=== PATIENT | male | born 1990 | race Caucasian/White ===

== ENCOUNTER 2017-05-08 17:05 | Emergency (ER) | payer SELFPAY ==
[~2017-05-08] VITALS: Ht 175.3 cm; Wt 70.0 kg
[~2017-05-08 17:05] MED LIST: DILA2TAB4 PO; PERC5TAB12 PO; REGL10TA5 PO
--- NOTE | 2017-05-08 17:31 | PD ---
HPI Chief Complaint: Psychiatric Symptoms Time Seen by Provider: 17:23 Travel History International Travel<30 days: No Contact w/Intl Traveler<30days: No Traveled to known affect area: No History of Present Illness HPI 26-year-old male brought in by EMS under a Peña act. According to the Peña act the patient has been depressed from the loss of his job, girlfriend, and home. The patient took Xanax. EMS reports that the patient was making suicidal statements on social media. Patient admits that he recently broke up with his girlfriend, lost his job, and is no longer able to stay in his truck where he has been sleeping. He admits to taking one Xanax yesterday, and 2 today that were provided to him by his parents. He also admits to drinking beer today. He is denying suicidal ideation. Denies any physical complaints. Denies illicit drug use. PFSH Past Medical History Hx Anticoagulant Therapy: No Cardiovascular Problems: No Chemotherapy: No Cerebrovascular Accident: No Diabetes: No Diminished Hearing: No (SOUND SENSITIVE) Respiratory: No Immunizations Current: No Past Surgical History Other Surgery: Yes (SPINAL DECOMPRESSION SURGERY) Social History Alcohol Use: Yes (socially) Tobacco Use: No Substance Use: Yes ([employer]) Allergies-Medications (Allergen,Severity, Reaction): Coded Allergies: No Known Allergies (Verified , 05/20/15) Reported Meds & Prescriptions Reported Meds & Active Scripts Active Reglan (Metoclopramide HCl) 10 Mg Tab 10 Mg PO TID PRN Percocet 5-325 mg (Oxycodone/Acetaminophen) Oxycodone 5/325 Acetaminophen Tab 1- 2 Tab PO Q4H PRN Dilaudid (Hydromorphone HCl) 2 Mg Tab 2 Mg PO Q4H PRN Review of Systems Except as stated in HPI: all other systems reviewed are Neg Physical Exam Narrative GENERAL: Well-developed, well-nourished, comfortable, wearing sunglasses, no apparent distress. SKIN: Focused skin assessment warm/dry. HEAD: Atraumatic. Normocephalic. EYES: Pupils equal and round. No scleral icterus. No injection or drainage. ENT: No nasal bleeding or discharge. Mucous membranes pink and moist. NECK: Trachea midline. No JVD. CARDIOVASCULAR: Regular rate and rhythm. RESPIRATORY: No accessory muscle use. Clear to auscultation. Breath sounds equal bilaterally. GASTROINTESTINAL: Abdomen soft, non-tender, nondistended. Hepatic and splenic margins not palpable. MUSCULOSKELETAL: No obvious deformities. No clubbing. No cyanosis. No edema. NEUROLOGICAL: Awake and alert. No obvious cranial nerve deficits. Motor grossly within normal limits. Normal speech. PSYCHIATRIC: Flat affect. Poor eye contact. Depressed mood. Data Data Orders Orders Complete Blood Count With Diff (05/08/17:) Comprehensive Metabolic Panel (05/08/17) Psych Screen (05/08/17) Drug Screen, Random Urine (05/08/17) Alcohol (Ethanol) (05/08/17) Salicylates (Aspirin) (05/08/17) Tylenol (Acetaminophen) (05/08/17) Labs Laboratory Tests Test 05/08/17 17:40 White Blood Count 6.9 TH/MM3 Red Blood Count 4.80 MIL/MM3 Hemoglobin 14.6 GM/DL Hematocrit 41.6 % Mean Corpuscular Volume 86.8 FL Mean Corpuscular Hemoglobin 30.5 PG Mean Corpuscular Hemoglobin Concent 35.1 % Red Cell Distribution Width 14.0 % Platelet Count 186 TH/MM3 Mean Platelet Volume 9.1 FL Neutrophils (%) (Auto) 57.7 % Lymphocytes (%) (Auto) 25.4 % Monocytes (%) (Auto) 8.2 % Eosinophils (%) (Auto) 7.9 % Basophils (%) (Auto) 0.8 % Neutrophils # (Auto) 4.0 TH/MM3 Lymphocytes # (Auto) 1.7 TH/MM3 Monocytes # (Auto) 0.6 TH/MM3 Eosinophils # (Auto) 0.5 TH/MM3 Basophils # (Auto) 0.1 TH/MM3 CBC Comment DIFF FINAL Differential Comment Blood Urea Nitrogen 13 MG/DL Creatinine 1.36 MG/DL Random Glucose 93 MG/DL Total Protein 7.5 GM/DL Albumin 4.3 GM/DL Calcium Level 9.0 MG/DL Alkaline Phosphatase 87 U/L Aspartate Amino Transf (AST/SGOT) 22 U/L Alanine Aminotransferase (ALT/SGPT) 25 U/L Total Bilirubin 0.5 MG/DL Sodium Level 140 MEQ/L Potassium Level 3.3 MEQ/L Chloride Level 104 MEQ/L Carbon Dioxide Level 25.9 MEQ/L Anion Gap 10 MEQ/L Estimat Glomerular Filtration Rate 62 ML/MIN Salicylates Level LESS THAN 1.7 MG/DL Urine Opiates Screen NEG Acetaminophen Level LESS THAN 2.0 MCG/ML Urine Barbiturates Screen NEG Urine Amphetamines Screen NEG Urine Benzodiazepines Screen NEG Urine Cocaine Screen POS Urine Cannabinoids Screen NEG Ethyl Alcohol Level 15 MG/DL MDM Medical Decision Making Medical Screen Exam Complete: Yes Emergency Medical Condition: Yes Differential Diagnosis Depression, substance induced mood disorder, reaction disorder, suicidal ideation Narrative Course Labs reviewed. The patient is medically cleared for psychiatric evaluation and disposition by them. I explained the circumstances of a Peña Act to the patient in detail and that he would need to be evaluated by psychiatric screener or the psychiatrist before this can be lifted and he can be discharged home. He is not happy with this. Diagnosis Primary Impression: Depression Qualified Codes: F32.9 - Major depressive disorder, single episode, unspecified Arpit Hammonds MD May 08, 2017 17:31
[2017-05-08 18:11] LABS: BASOPHIL # 0.1 TH/MM3 (0-0.2); BASOPHIL % 0.8 % (0.0-2.0); EOSINOPHIL # 0.5 TH/MM3 (0-0.4); EOSINOPHIL % 7.9 % (0.0-4.0); HEMATOCRIT 41.6 % (39.0-51.0); HEMOGLOBIN 14.6 GM/DL (13.0-17.0); LYMPH % 25.4 % (9.0-44.0); LYMPHOCYTE # 1.7 TH/MM3 (1.0-4.8); MEAN CELL VOLUME 86.8 FL (80.0-100.0); MEAN CORPUSCULAR HEMOGLOBIN 30.5 PG (27.0-34.0); MEAN CORPUSCULAR HGB CONC 35.1 % (32.0-36.0); MEAN PLATELET VOLUME 9.1 FL (7.0-11.0); MONO % 8.2 % (0.0-8.0); MONOCYTE # 0.6 TH/MM3 (0-0.9); NEUT % 57.7 % (16.0-70.0); PLATELET COUNT 186 TH/MM3 (150-450); WHITE BLOOD COUNT 6.9 TH/MM3 (4.0-11.0)
[2017-05-08 18:31] LABS: ALBUMIN 4.3 GM/DL (3.4-5.0); BICARBONATE 25.9 MEQ/L (21.0-32.0); BLOOD UREA NITROGEN 13 MG/DL (7-18); CHLORIDE 104 MEQ/L (98-107); CREATININE 1.36 MG/DL (0.60-1.30); GLOMERULAR FILTRATION RATE 62 ML/MIN (>89); GLUCOSE,RANDOM 93 MG/DL (74-106); SODIUM (NA) 140 MEQ/L (136-145)
[2017-05-08 18:33] LABS: ALT (GPT) 25 U/L (12-78); AST (GOT) 22 U/L (15-37)
[2017-05-08 18:35] LABS: ALKALINE PHOSPHATASE 87 U/L (45-117); TOTAL BILIRUBIN ADULT 0.5 MG/DL (0.2-1.0); TOTAL PROTEIN 7.5 GM/DL (6.4-8.2)
[2017-05-08 18:42] LABS: ACETAMINOPHEN LESS THAN 2.0 MCG/ML (10.0-30.0)
[2017-05-08 20:19] VITALS: BP 127/60; PULSE 88; RESP 17; TEMP 99.2; O2SAT 99
[2017-05-08 22:02] VITALS: BP 123/71; PULSE 63; RESP 18
[2017-05-09 02:00] VITALS: BP 115/71; PULSE 70; RESP 17; TEMP 98.2; O2SAT 98
== END 2017-05-09 04:08 ==
LOC: NEPD 17:05 → NEPJ 05-09 04:08
DX: F32.9 Major depressive disorder, single episode, unspecified (principal); Z79.899 Other long term (current) drug therapy
CPT/HCPCS: 80053; 80307; 85025; 99283